=== PATIENT | male | born 1960 | race Two or more races ===

== ENCOUNTER 2020-11-20 14:14 | Emergency (ER) | payer OTHER ==
[~2020-11-20] VITALS: Ht 170.2 cm; Wt 104.3 kg
[2020-11-20 14:39] VITALS: BP 141/76
--- NOTE | 2020-11-20 14:41 | NUR ---
triaged and waiting in tent.
[2020-11-20] MEDS ORDERED: methylPREDNISolone SS 125 MG in WATER STERILE 2 ML IM ONE (14:55)
[2020-11-20] MEDS ORDERED: WATER STERILE 10 ML MC ONE (15:26)
[2020-11-20] MEDS ORDERED: methylPREDNISolone SS 125 MG/2 ML VIAL ONE (15:26)
== END 2020-11-20 15:34 | disposition home or self-care (01) ==
LOC: MED 14:14
DX: K14.0 Glossitis (principal); I10 Essential (primary) hypertension
CPT/HCPCS: 96372; 99283; J2930

== ENCOUNTER 2021-02-13 00:24 | Emergency (ER) | payer OTHER ==
[~2021-02-13] VITALS: Ht 170.2 cm; Wt 106.3 kg
[2021-02-13 00:43] VITALS: BP 140/96
[2021-02-13] MEDS ORDERED: MORPHINE SULFATE 10 MG/ML VIAL IVP ONE (01:15)
[2021-02-13] MEDS ORDERED: MORPHINE SULFATE 10 MG/ML VIAL IM ONE (01:20)
[2021-02-13 02:44] VITALS: BP 140/96
[2021-02-14] MEDS ORDERED: KETO10TA2 PO (03:14)
[2021-02-14] MEDS ORDERED: CYCL10TA13 PO (03:16)
== END 2021-02-13 02:35 | disposition home or self-care (01) ==
LOC: MED 00:24
DX: M54.5 Low back pain (principal); I10 Essential (primary) hypertension
CPT/HCPCS: 96372; 99283; J2270; 99285

== ENCOUNTER 2021-02-14 02:27 | Emergency (ER) | payer OTHER ==
[~2021-02-14] VITALS: Ht 170.2 cm; Wt 104.3 kg
[2021-02-14 02:37] VITALS: BP 146/97
[2021-02-14] MEDS ORDERED: CYCLOBENZAPRINE 10 MG TAB PO SCH (03:10)
[2021-02-14] MEDS ORDERED: KETOROLAC 60 MG/2 ML VIAL IM SCH (03:10)
[2021-02-14] MEDS ORDERED: KETO10TA2 PO (03:14)
[2021-02-14] MEDS ORDERED: CYCL10TA13 PO (03:16)
[2021-02-14 03:31] VITALS: BP 146/97
== END 2021-02-14 03:31 | disposition home or self-care (01) ==
LOC: MED 02:27
DX: M54.5 Low back pain (principal); I10 Essential (primary) hypertension
CPT/HCPCS: 96372; 99283; J1885